=== PATIENT | female | born 1980 | race Caucasian/White ===

== ENCOUNTER 2018-03-04 15:34 | Emergency (ER) | payer OTHER ==
[~2018-03-04] VITALS: Ht 177.8 cm; Wt 117.9 kg
[~2018-03-04 15:34] MED LIST: ALBUTEROL2.5 MG/3 M INH/SOL; BENTYL20 MG PO; CIPRO 500MG TA500 MG PO; EPIPEN ADULT A0.3 MG IM; FLAG500 PO; MULTIVITAMIN1 TAB PO; NAPHCON-A EYE D15 ML OP; Nebulizer machine; POLYMYXIN B-TMP10 ML OPH; PREDNISONE20 M1 PO; PRENATAL1 TA1 PO; PROAIR HFA0.09 MG/Ac INH; PROMETHAZINE-D118 ML PO; ZITHROMAX250 M2 PO; ZOFRAN4 M1 SL
[2018-03-04 16:05] LABS: ABSOLUTE BASOPHIL COUNT 0 /CUMM (0.0-0.2); ABSOLUTE EOSINOPHIL COUNT 0.2 /CUMM (0.0-0.7); ABSOLUTE GRANULOCYTE CT 4.7 /CUMM (1.4-6.5); ABSOLUTE LYMPH COUNT 3.4 /CUMM (1.2-3.4); ABSOLUTE MONOCYTE COUNT 0.7 /CUMM (0.10-0.60); BASOPHIL % 0.5 % (0.0-2.0); EOSINOPHIL % 2.4 % (0-5); GRANULOCYTE % 51.9 % (42.2-75.2); HEMATOCRIT 39.6 % (37-47); MEAN CORPUSCULAR HGB 25.8 PG (27.0-31.0); MEAN CORPUSCULAR HGB CONC 32.8 G/DL (33.0-37.0); MEAN CORPUSCULAR VOLUME 78.6 FL (81.0-99.0); MEAN PLATELET VOLUME 10.5 FL (7.4-10.4); PLATELET COUNT 242 /CUMM (130-400); RBC DISTRIBUTION WIDTH 15.1 % (11.5-14.5); RED BLOOD CELL CT 5.04 /CUMM (4.20-5.40); WHITE BLOOD CELL COUNT 9.1 /CUMM (4.8-10.8)
--- NOTE | 2018-03-04 16:58 | ED GI/GU/ABDOMINAL COMPLAINT ---
History of Present Illness General Chief Complaint: Dyspnea (COPD, CHF, Other) Stated Complaint: ABD PAIN/SOB Source: patient, old records Exam Limitations: no limitations Vital Signs & Intake/Output Vital Signs & Intake/Output Vital Signs Date Time Temp Pulse Resp B/P B/P Pulse O2 O2 Flow FiO2 Mean Ox Delivery Rate 03/04 1903 97.9 94 18 127/72 100 Room Air 03/04 1658 Room Air 03/04 1541 97.3 73 18 110/75 100 Room Air Allergies Coded Allergies: nut - unspecified (Severe, ANAPHYLAXIS 03/23/16) Penicillins (Intermediate, RASH 03/23/16) azithromycin (RASH 03/04/18) Reconcile Medications Albuterol Sulfate (Proair Hfa) 0.09 MG/Actuation MAGGIE 2 PUFF INH PRN ASTHMA ( Reported) Albuterol Sulfate 2.5 MG/3 ML (0.083 %) VIAL.NEB 1 Vial INH/PAMELA Q4P PRN wheezing Azithromycin (Zithromax) 250 MG TABLET 1 TAB PO DAILY asthmatic bronchitis Ciprofloxacin (Cipro) 500 MG TABLET 1 TAB PO BID colitis Dicyclomine Hydrochloride (Bentyl) 20 MG TAB 1 TAB PO 4 TIMES/DAY PRN abd cramps Epinephrine (Epipen 2-Fermin) 0.3 MG/0.3 ML AUTO.INJCT 0.3 MG IM PRN ALLERGIC REACTION (Reported) Metronidazole (Flagyl) 500 MG TAB 500 MG PO TID colitis Multivitamin (Multiple Vitamins) 1 EACH TABLET 1 TAB PO DAILY SUPPLEMENT ( Reported) Naphazoline HCl/Pheniramine (Naphcon-A Eye Drops) 15 ML DROPS 1 GTT OP BID PRN RED EYE [Nebulizer machine] asthma Ondansetron (Zofran Odt) 4 MG TAB.RAPDIS 1 ODT SL Q6P PRN NAUSEA Polymyxin B Sulf/Trimethoprim (Polymyxin B-Tmp Eye Drops) 10 ML DROPS 1 GTT OPH TID CONJUNCTIVITIS Prednisone 20 MG TABLET 1 TAB PO BID asthmatic bronchitis [id number] () 1 TAB TAB 1 TAB PO DAILY SUPPLEMENT (Reported) Promethazine/Dextromethorphan (Promethazine-Dm Syrup) 6.25 MG-15 MG/5 ML SYRUP 5-10 ML PO Q4P PRN cough Triage Note: PT STATES EPIGASTRIC PAIN. PT STATES IT FEELS LIKE SHE IS HAVING A CONTRACTION. PT C/O NOT BEING ABLE TO BREATH 02 SAT 100% IN TRIAGE. Triage Nurses Notes Reviewed? yes ? N Is pt currently ? No HPI: 37F PMH asthma presenting with acute onset of severe epigastric pain, 10/10, non -radiating, associated with nausea but no vomiting. Started abruptly, no inciting event or trauma. Has had 2 similar episodes in the past 6 months that self-resolved, though 911 were called for both. Workup in the past has been negative. Denies fever, chills, headache, stiff neck, chest pain, SOB, diarrhea , dysuria. Typically has constipation but has had normal BM for 4 days. No drug use, smoking, or other illicit substances. No other complaints. Past History Travel History Traveled to [place] past 21 day No Medical History Any Pertinent Medical History? 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 No Review of Systems Review of Systems Constitutional: Reports: no symptoms. EENTM: Reports: no symptoms. Respiratory: Reports: no symptoms. Cardiovascular: Reports: no symptoms. GI: Reports: no symptoms. Genitourinary: Reports: no symptoms. Musculoskeletal: Reports: no symptoms. Skin: Reports: no symptoms. Neurological/Psychological: Reports: no symptoms. Hematologic/Endocrine: Reports: no symptoms. Immunologic/Allergic: Reports: no symptoms. All Other Systems: Reviewed and Negative Physical Exam Physical Exam General Appearance: well developed/nourished, mild distress Head: atraumatic, normal appearance Eyes: Bilateral: normal appearance. Ears, Nose, Throat, Mouth: moist mucous membrane Neck: normal inspection, supple, full range of motion Respiratory: normal breath sounds Cardiovascular: regular rate/rhythm Gastrointestinal: soft, non-tender Rectal: deferred Back: normal inspection, normal range of motion Extremities: normal range of motion Neurologic/Psych: awake, alert, oriented x 3, normal mood/affect Skin: intact, normal color, warm/dry Core Measures ACS in differential dx? No Sepsis Present: No Sepsis Focused Exam Completed? No Progress Differential Diagnosis: appendicitis, biliary colic, bowel obstruction, colon cancer, cholecystitis, gastritis, ischemic bowel, inflamm bowel dis, pancreatitis, peptic ulcer, PUD/GERD, perforated viscous, SBO, UTI/pyelo Plan of Care: Orders Procedure Date/time Status LACTIC ACID 03/04 1842 Complete URINALYSIS 03/04 1658 Complete HUMAN BETA HCG SCREEN 03/04 1658 Complete EKG 03/04 1556 Active LIPASE 03/04 1542 Complete COMPREHENSIVE METABOLIC PANEL 03/04 1542 Complete CBC WITHOUT DIFFERENTIAL 03/04 1542 Complete AMYLASE 03/04 1542 Complete Laboratory Tests 03/04/18 1721: Urine Color YEL, Urine Clarity HAZY H, Urine pH 6.0, Ur Specific [place] 1.010, Urine Protein NEG, Urine Ketones NEG, Urine Nitrite NEG, Urine Bilirubin NEG, Urine Urobilinogen 0.2, Ur Leukocyte Esterase SMALL H, Ur Microscopic SEDIMENT EXAMINED, Urine RBC 1-3, Urine WBC 1-3 H, Ur Epithelial Cells FEW, Urine Bacteria RARE H, Urine Hemoglobin LARGE H, Urine Glucose NEG 03/04/18 1717: Total Beta HCG NEGATIVE 03/04/18 1717: Lactic Acid 1.1 03/04/18 1552: Anion Gap 15, Estimated GFR > 60, BUN/Creatinine Ratio 18.3, Glucose 88, Calcium 8.9, Total Bilirubin 0.3, AST 48 H, ALT 46, Alkaline Phosphatase 96, Total Protein 7.3, Albumin 4.2, Globulin 3.1, Albumin/Globulin Ratio 1.4, Amylase 48, Lipase 289, CBC w Diff NO MAN DIFF REQ, RBC 5.04, MCV 78.6 L, MCH 25.8 L, MCHC 32.8 L, RDW 15.1 H, MPV 10.5 H, Gran % 51.9, Lymphocytes % 37.9, Monocytes % 7.3, Eosinophils % 2.4, Basophils % 0.5, Absolute Granulocytes 4.7, Absolute Lymphocytes 3.4, Absolute Monocytes 0.7 H, Absolute Eosinophils 0.2, Absolute Basophils 0 Diagnostic Imaging: Viewed by Me: CT Scan. Discussed w/RAD: CT Scan. Radiology Impression: ATIENT: SORAYA WOODWARD PRESENT AGE: 37 PATIENT ACCOUNT NO: [id number] : 82 LOCATION: ER ORDERING PHYSICIAN: Stephen Echeverria MD SERVICE DATE: 03/04/18 EXAM TYPE: CAT - CT ABD & PELVIS W IV CONTRAST EXAMINATION: CT ABDOMEN AND PELVIS WITH CONTRAST CLINICAL INFORMATION: Severe epigastric pain. COMPARISON: CT abdomen pelvis 09/2013. TECHNIQUE: Multidetector volumetric imaging was performed of the abdomen and pelvis following IV administration of 95 mL of Optiray 320 intravenous contrast. Sagittal and coronal reformatted images were obtained on the technologist's workstation. DLP: 1238 mGy-cm FINDINGS: LUNG BASES: Small lung cyst in the right middle lobe demonstrated. The visualized lung bases are otherwise unremarkable. LIVER, GALLBLADDER, AND BILIARY TREE: The liver is normal in size, shape, and attenuation. No focal hepatic lesion or biliary ductal dilatation is present. There is a noncalcified gallbladder within the gallbladder lumen. No bladder wall thickening or pericholecystic fluid. PANCREAS : Unremarkable. No peripancreatic stranding or fluid. SPLEEN: Unremarkable. ADRENAL GLANDS: Unremarkable. KIDNEYS AND URETERS: The kidneys are normal in size, shape, and attenuation. No hydronephrosis, hydroureter, or calculi seen. No perinephric stranding. BLADDER: Unremarkable. GASTROINTESTINAL TRACT: Bowel gas pattern is nonobstructive. No evidence of acute bowel inflammation. The appendix is unremarkable. ABDOMINAL WALL: No significant hernia is appreciated. LYMPH NODES: No bulky adenopathy. VASCULAR: Unremarkable. PELVIC VISCERA: No free pelvic fluid. No suspicious uterine or adnexal mass. OSSEOUS STRUCTURES: No acute osseous abnormalities. IMPRESSION: 1. No acute intra-abdominal or intrapelvic abnormalities demonstrated. 2. A noncalcified gallstone within the gallbladder lumen. No CT evidence of cholecystitis. No biliary ductal dilatation. 3. Unremarkable appearance of the pancreas. Please correlate with serum lipase. 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 <Electronically signed in Other Vendor System> SIGNED BY: Mahamed Murphy MD 03/04/182044 Initial ED EKG: none Departure Departure Disposition: HOME OR SELF CARE Condition: Stable Clinical Impression Primary Impression: Biliary colic Secondary Impressions: Cholelithiasis Qualifiers: Cholelithiasis location: gallbladder Cholecystitis presence: without cholecystitis Biliary obstruction: without biliary obstruction Qualified Code: K80.20 - Calculus of gallbladder without cholecystitis without obstruction Referrals: Gwen SHAVER,Minh Kee MD,Crispin Blanco (PCP/Family) Bart SHAVER,Jacky Alexandre Additional Instructions: Follow up with your PCP and surgeon. Return to ER if new or worsening symptoms. Take Omeprazole 20mg every day for 4 weeks and see if your symptoms improve. Departure Forms: Customer Survey General Discharge Information
--- NOTE | 2018-03-04 20:45 | CT SCAN REPORT ---
EXAMINATION: CT ABDOMEN AND PELVIS WITH CONTRAST CLINICAL INFORMATION: Severe epigastric pain. COMPARISON: CT abdomen pelvis 08/25/2014. TECHNIQUE: Multidetector volumetric imaging was performed of the abdomen and pelvis following IV administration of 95 mL of Optiray 320 intravenous contrast. Sagittal and coronal reformatted images were obtained on the technologist's workstation. DLP: 1238 mGy-cm FINDINGS: LUNG BASES: Small lung cyst in the right middle lobe demonstrated. The visualized lung bases are otherwise unremarkable. LIVER, GALLBLADDER, AND BILIARY TREE: The liver is normal in size, shape, and attenuation. No focal hepatic lesion or biliary ductal dilatation is present. There is a noncalcified gallbladder within the gallbladder lumen. No bladder wall thickening or pericholecystic fluid. PANCREAS: Unremarkable. No peripancreatic stranding or fluid. SPLEEN: Unremarkable. ADRENAL GLANDS: Unremarkable. KIDNEYS AND URETERS: The kidneys are normal in size, shape, and attenuation. No hydronephrosis, hydroureter, or calculi seen. No perinephric stranding. BLADDER: Unremarkable. GASTROINTESTINAL TRACT: Bowel gas pattern is nonobstructive. No evidence of acute bowel inflammation. The appendix is unremarkable. ABDOMINAL WALL: No significant hernia is appreciated. LYMPH NODES: No bulky adenopathy. VASCULAR: Unremarkable. PELVIC VISCERA: No free pelvic fluid. No suspicious uterine or adnexal mass. OSSEOUS STRUCTURES: No acute osseous abnormalities. IMPRESSION: 1. No acute intra-abdominal or intrapelvic abnormalities demonstrated. 2. A noncalcified gallstone within the gallbladder lumen. No CT evidence of cholecystitis. No biliary ductal dilatation. 3. Unremarkable appearance of the pancreas. Please correlate with serum lipase.
[2018-03-04 21:09] VITALS: BP 112/72
== END 2018-03-04 21:18 ==
LOC: ERH 15:34
PROVIDERS: Emergency Medicine
DX: K80.70 Calculus of gallbladder and bile duct without cholecystitis without obstruction (principal); R11.0 Nausea
CPT/HCPCS: 74177; 81001; 93005; 93010; 96374; 96375; J0131; J1720